=== PATIENT | female | born 1980 | race Caucasian/White ===

== ENCOUNTER 2020-08-11 21:06 | Emergency (ER) | payer MEDICAID, SELFPAY ==
[2020-08-11 21:07] VITALS: BP 143/86; PULSE 103; RESP 18; TEMP 36.6; O2SAT 100; BMI 32.1
--- NOTE | 2020-08-11 21:25 | PC.NURSE ---
Addendum entered by Wild Chen RN 08/11/20 21:39: Pt was explained risk of leaving without being seen and against medical advice. Pt verbalized understanding. Original Note: Pt left without being seen. AMA paper was signed by patient.
[2020-08-11 21:41] VITALS: BP 143/86; PULSE 103; RESP 18; TEMP 36.6; O2SAT 100
== END 2020-08-11 21:25 | disposition left against medical advice (07) ==
LOC: ER 21:13
PROVIDERS: Emergency Provider Emergency Medicine; PCP Family Medicine
DX: Z53.21 Procedure and treatment not carried out due to patient leaving prior to being seen by health care provider (principal)
CPT/HCPCS: 99211